=== PATIENT | female | born 1970 | race Caucasian/White ===

== ENCOUNTER → 2017-08-14 | Outpatient (CLI) | payer OTHER ==
[2017-08-14 13:07] LABS: BASO # 0.1 10*3/uL (0.0-0.1); BASO % 0.6 % (0.0-1.0); EOS # 0.4 10*3/uL (0.0-0.4); EOS % 4.1 % (1.0-4.0); HEMATOCRIT 35.5 % (37.0-47.0); HEMOGLOBIN 10.6 g/dl (12.0-16.0); LYMPH # 2.8 10*3/uL (1.3-4.4); LYMPH % 32.2 % (27.0-41.0); MEAN CELL VOLUME 75.7 fl (81.0-99.0); MEAN CORPUSCULAR HGB 22.6 pg (27.0-31.0); MEAN CORPUSCULAR HGB CONC 29.9 g/dl (33.0-37.0); MEAN PLATELET VOLUME 10.5 fl (9.6-12.3); MONO # 0.3 10*3/uL (0.1-1.0); MONO % 3.6 % (3.0-9.0); NEUT # 5.1 10*3/uL (2.3-7.9); PLATELET COUNT AUTOMATED 370 10*3/uL (130-400); RED BLOOD COUNT 4.69 10*6/uL (4.10-5.10); RED CELL DISTRI WIDTH 20.1 % (0-14.5); WHITE BLOOD COUNT 8.6 10*3/uL (4.8-10.8)
[2017-08-14 13:24] LABS: ALBUMIN 3.6 gm/dl (3.1-4.5); ALKALINE PHOSPHATASE 113 U/L (45-117); BILIRUBIN, DIRECT < 0.1 mg/dL (0.0-0.2); BUN 6 mg/dl (7-24); CHLORIDE 109 mmol/L (98-107); CHOLESTEROL 231 mg/dL (<200); CREATININE 0.71 mg/dL (0.55-1.02); HDL CHOLESTEROL 47 mg/dl (40-60); LDL CHOLESTEROL 150 mg/dL (9-159); SGOT/AST 7 IU/L (3-35); SGPT/ALT 15 U/L (12-78); SODIUM 142 mmol/L (136-145); T3 UPTAKE 32 % (31-39); THYROXINE (T4) TOTAL 8.1 ug/dl (4.8-13.9); TOTAL PROTEIN 7.5 gm/dL (6.4-8.2); TRIGLYCERIDES 168 mg/dl (<150); VLDL CHOLESTEROL 34 mg/dL (6-40)
== END | disposition home or self-care (01) ==
LOC: LAB 12:23
PROVIDERS: Nurse Practitioner Family
DX: Z79.899 Other long term (current) drug therapy (principal)

== ENCOUNTER 2018-09-21 02:09 | Emergency (ER) | payer OTHER ==
[~2018-09-21] VITALS: Ht 177.8 cm; Wt 104.3 kg
--- NOTE | ~2018-09-21 | EKG ---
[place], [place] ELECTROCARDIOGRAM REPORT NAME: LAURIE PLATT UNIT #: [id number] ROOM: DOCTOR: SHANE DRAFT REPORT BIRTHDATE: [birth year] [facility] Test Date: 2018-09-21 Test Time: 02:11:48 Pat Name: LAURIE PLATT Department: Room: Gender: F [employer]: HECTOR : 1970 Requested By: MATY BRAGG Order Number: [id number] Reading MD: Measurements Intervals [place] Rate: 80 P: 40 OK: 159 QRS: 46 QRSD: 98 T: 41 QT: 381 QTc: 440 Interpretive Statements Sinus rhythm Borderline low voltage, extremity leads Baseline wander in lead(s) V1,V3,V4,V5 CM:EKGRPT:ELECTROCARDIOGRAM REPORT 0 [id number] MATY TORRES DRAFT REPORT MATY BRAGG DO
[2018-09-21 02:25] LABS: BASO # 0.1 10*3/uL (0.0-0.1); BASO % 0.6 % (0.0-1.0); EOS # 0.1 10*3/uL (0.0-0.4); HEMOGLOBIN 12.8 g/dl (12.0-16.0); LYMPH # 2.4 10*3/uL (1.3-4.4); LYMPH % 25.4 % (27.0-41.0); MEAN CELL VOLUME 82.3 fl (81.0-99.0); MEAN CORPUSCULAR HGB CONC 32.8 g/dl (33.0-37.0); MEAN PLATELET VOLUME 10.5 fl (9.6-12.3); MONO # 0.4 10*3/uL (0.1-1.0); MONO % 3.7 % (3.0-9.0); NEUT # 6.5 10*3/uL (2.3-7.9); NEUT % 68.9 % (47.0-73.0); PLATELET COUNT AUTOMATED 309 10*3/uL (130-400); RED BLOOD COUNT 4.74 10*6/uL (4.10-5.10); RED CELL DISTRI WIDTH 19.8 % (0-14.5); WHITE BLOOD COUNT 9.5 10*3/uL (4.8-10.8)
[2018-09-21] MEDS ORDERED: PRAVASTATIN SOD40 MG PO (02:30)
[2018-09-21] MEDS ORDERED: TOPIRAMATE25 M3 PO (02:30)
[2018-09-21] MEDS ORDERED: OMEPRAZOLE D/R20 MG PO (02:30)
[2018-09-21] MEDS ORDERED: LOPRESSOR25 MG PO (02:31)
[2018-09-21] MEDS ORDERED: SERTRALINE HYD100 MG PO (02:31)
[2018-09-21] MEDS ORDERED: OLANZAPINE10 MG PO (02:31)
[2018-09-21] MEDS ORDERED: BIOTIN PLUS KE1 EACH PO (02:32)
[2018-09-21] MEDS ORDERED: VITAMIN D5000 UNI1 PO (02:32)
[2018-09-21] MEDS ORDERED: GUMMI BEAR MUL1 EACH PO (02:33)
[2018-09-21 02:35] LABS: ACT PARTIAL THROMBO TIME 24.2 SECONDS (20.8-31.5); INTERNATIONAL NORM RATIO 0.9 (2.0-3.5)
[2018-09-21 02:42] LABS: ALBUMIN 4.1 gm/dl (3.1-4.5); ALKALINE PHOSPHATASE 109 U/L (45-117); BUN 12 mg/dl (7-24); CHLORIDE 114 mmol/L (98-107); CREATININE 0.82 mg/dL (0.55-1.02); POTASSIUM 3.6 mmol/L (3.5-5.1); SGOT/AST 9 IU/L (3-35); SGPT/ALT 17 U/L (12-78); SODIUM 141 mmol/L (136-145); TOTAL PROTEIN 8.1 gm/dL (6.4-8.2)
[2018-09-21 02:43] LABS: TROPONIN I < 0.015 ng/ml (<0.045)
[2018-09-25] MEDS ORDERED: PREDNISONE50 MG PO (13:32)
[2018-09-25] MEDS ORDERED: CYCLOBENZAPRINE10 MG PO (13:32)
[2018-09-25] MEDS ORDERED: PERCOCET 5-3251 EACH PO (13:33)
== END 2018-09-21 04:32 | disposition left against medical advice (07) ==
LOC: ED 02:09
PROVIDERS: Student in an Organized Health Care Education/Training Program
DX: R07.9 Chest pain, unspecified (principal); R20.0 Anesthesia of skin; R06.4 Hyperventilation; Z88.5 Allergy status to narcotic agent; Z88.8 Allergy status to other drugs, medicaments and biological substances; Z79.899 Other long term (current) drug therapy

== ENCOUNTER → 2020-09-06 | Outpatient (CLI) | payer OTHER ==
[~2020-09-06] MED LIST: BIOTIN PLUS KE1 EACH PO; CYCLOBENZAPRINE10 MG PO; GUMMI BEAR MUL1 EACH PO; LOPRESSOR25 MG PO; OLANZAPINE10 MG PO; OMEPRAZOLE D/R20 MG PO; PERCOCET 5-3251 EACH PO; PRAVASTATIN SOD40 MG PO; PREDNISONE50 MG PO; SERTRALINE HYD100 MG PO; TOPIRAMATE25 M3 PO; VITAMIN D5000 UNI1 PO
== END | disposition home or self-care (01) ==
LOC: COVID19 13:34
PROVIDERS: ATTEND Nurse Practitioner Primary Care
DX: Z20.828 Contact with and (suspected) exposure to other viral communicable diseases (principal); J06.9 Acute upper respiratory infection, unspecified

== ENCOUNTER → 2021-03-09 | Outpatient (CLI) | payer OTHER | END | disposition home or self-care (01) | LOC: CT 14:00 | PROVIDERS: ATTEND Internal Medicine Cardiovascular Disease | DX: R91.1 Solitary pulmonary nodule (principal); I10 Essential (primary) hypertension ==

== ENCOUNTER → 2021-06-02 | Outpatient (CLI) | payer OTHER ==
[~2021-06-02] MED LIST changes: +LIPITOR20 MG PO
== END | disposition home or self-care (01) ==
LOC: CARD 03:28
PROVIDERS: ATTEND Internal Medicine Cardiovascular Disease
DX: I10 Essential (primary) hypertension (principal); R07.2 Precordial pain

== ENCOUNTER → 2021-06-16 | Outpatient (CLI) | payer OTHER | END | disposition home or self-care (01) | LOC: CT 11:00 → LAB 11:13 | PROVIDERS: ATTEND Internal Medicine Critical Care Medicine | DX: R91.1 Solitary pulmonary nodule (principal); R53.83 Other fatigue; G72.9 Myopathy, unspecified; Z87.891 Personal history of nicotine dependence; Z68.30 Body mass index [BMI] 30.0-30.9, adult ==

== ENCOUNTER → 2024-01-21 | Outpatient (CLI) | payer MEDICARE | END | disposition home or self-care (01) | LOC: MAMMO 15:59 | PROVIDERS: ATTEND Physician Assistant | DX: Z12.31 Encounter for screening mammogram for malignant neoplasm of breast (principal); N64.9 Disorder of breast, unspecified ==